=== PATIENT | female | born 1990 | race Caucasian/White ===

== ENCOUNTER 2025-05-27 02:46 | Emergency (ER) | payer OTHER, SELFPAY ==
[2025-05-27 02:48] VITALS: BP 145/98
[2025-05-27 02:49] VITALS: BP 145/98
[2025-05-27] MEDS: TORADOL 15 MG IV (03:05)
[2025-05-27] MEDS: NSS 1000 IV (03:06)
[2025-05-27 03:08] LABS: Hematocrit 37.7 % (37.0-47.0); Hemoglobin 12.6 g/dL (12.0-16.0); Mean Corp Hgb Conc. 33.4 g/dL (33.0-37.0); Mean Corpuscular Volume 83.4 fL (81.0-99.0); Nucleated Red Blood Cells % 0 %; Platelet Count 287 10^3/uL (130-400); Red Cell Dist. Width 13.2 % (11.5-14.5)
--- NOTE | 2025-05-27 03:11 | ED.GENMED ---
History of Present Illness
General
Chief Complaint: Flank Pain
Source: patient
Exam Limitations: none
Time Seen by Provider: 05/27/25 02:57
Nursing documentation reviewed up to this point in time: agreed with
History of Present Illness
History of Present Illness:
35-year-old female with history as noted presents for evaluation of flank pain. Patient reports onset of symptoms this evening�symptoms woke her from sleep. She reports a sharp pain in the right flank, nonradiating. She says similar to prior
kidney stones. Symptoms seem to have abated for now. She did have some nausea and vomiting earlier. Denies any fever or chills. No urinary symptoms. No vaginal bleeding or discharge. Denies any other acute complaints.
Review of Systems
Review of Systems
All Other Systems: ROS reviewed and negative except as documented in HPI and ROS
Constitutional: Denies fever or chills
Respiratory: Denies trouble breathing
Cardiac: Denies chest pain
ABD/GI: Reports nausea and vomiting; Denies abdominal pain or diarrhea
: Reports flank pain; Denies dysuria, frequency or bleeding
Musculoskeletal: Denies neck pain
Neurological: Denies dizzy or headache
Phy Exam
Physical Exam
Physical Exam:
General: Awake, alert, oriented x3; no acute distress
Head: Normocephalic, atraumatic
Eyes: Conjunctiva normal, sclera anicteric
Throat: Airway intact, handling secretions
Neck: Trachea midline, supple without meningismus
Lungs: Breathing comfortably with no evidence of respiratory distress
Heart: Regular rate
Abd: Soft, non distended, nontender
Back: No CVA tenderness
Neuro: Grossly intact
Skin: No rash in the area of concern
Extremities: Warm and well-perfused
Scores
Heart Failure Risk
Heart Failure Risk Score: Not Applicable
Heart Score for Chest Pain Patients
STEMI patient?: Not applicable
Withdrawal Assessment of Alcohol
Withdrawal Assessment Completed?: Not applicable
Course
Orders/Labs/Results
Orders:
Orders
05/27/25 02:56
Complete Blood Count/With Diff Urgent
Comprehensive Metabolic Panel Urgent
HCG, Serum Qualitative Screen Urgent
05/27/25 02:57
Ketorolac [Toradol] 15 mg IV NOW STA
Test Result ONCE
05/27/25 02:58
CT Abd/pel Without Iv Or Oral Urgent
Comment:
Reason For Exam: R flank pain
0.9% Sodium Chloride 1000 ml [Nss] 1,000 ml IV BOLUS
05/27/25 04:18
Urinalysis Reflex To Culture Urgent
Date Specimen was Collected: 05/27/25
Time Specimen was Collected: 04:11
Urine Microscopic Reflex Cult Urgent
Urine Culture Urgent
BESSIE Source: U
Specimen Description:
Date Specimen was Collected: 05/27/25
Time Specimen was Collected: 04:11
Abnormal Lab Results
05/27/25 05/27/25
02:56 04:18
Absolute Monos (auto) 1.2 H 10^3/uL
(0.1-0.6)
Neutrophils % 42.1 L %
(42.2-75.2)
Monocytes % 13.9 H %
(1.7-9.3)
BUN 18 H mg/dl
(7-17)
Ur Occult Blood Reflex 3+ A
(Negative)
Urine Nitrite (Reflex) Positive A
(Negative)
Leukocyte Esterase Rfl 1+ A
(Negative)
Urine RBC 3-6 A /HPF
(0-2)
Urine WBC (Reflex) 26-30 A /HPF
(0-5)
Urine Bacteria (Reflex) Many A
(Negative)
Urine Albumin (Reflex) 1+ A
(Neg - Trace)
05/27/25 02:56
05/27/25 02:56
Vital Signs
Initial and Last Documented VS:
Initial Vital Signs
BP Pulse Ox
145/98 99
05/27/25 02:48 05/27/25 02:48
Last Documented Vital Signs
Temp Pulse Resp BP Pulse Ox
36.7 C 81 18 145/98 97
05/27/25 02:49 05/27/25 02:49 05/27/25 02:49 05/27/25 02:49 05/27/25 03:14
MDM/Problems Addressed
Differential Diagnosis Includes:
Nephrolithiasis, UTI, ovarian cyst, cholelithiasis, cholecystitis
MDM/Problems Addressed:
35-year-old female presents with right flank pain similar to prior kidney stones�pain was very intense and woke her from sleep tonight but seems to have abated. Nausea and vomiting earlier seems to resolved. Vitals and exam are as above. Check
labs, urine, hCG. Check CT abdomen. Reassess after the above.
Labs reviewed no clinically significant abnormalities. hCG negative. UA contaminated�patient with no urinary symptoms, no fever, no leukocytosis�would not treat at this point. CT shows 2 to 3 mm stone in the distal right ureter with
hydronephrosis. Patient pain-free on reassessment. Stable for discharge for trial of passage. Patient comfortable with this plan. All questions answered.
*Radiology
Radiology exam reviewed: radiology read reviewed
*Pulse Oximetry
SaO2: 97
Oxygen Mode of Delivery: Room air
Patient hypoxic: no (97%)
*Critical Care Note
Total Time (30-74mins, 75-104mins- exclusive of procedures): Not Applicable
Data Reviewed
Source: patient and records
ED Attending Note
-
Portions of this chart may have been created with voice recognition software.� Occasional wrong word or��sound alike� substitutions may have occurred due to the inherent limitations of voice recognition software.
Discharge Plan
Departure
Patient Disposition: Home (Routine Discharge)
Date of Disposition: 05/27/25
Time of Disposition: 04:07
Patient with high blood pressure during this ER visit?: Yes
Discharge Problem:
Nephrolithiasis
Instructions: Kidney Stones (DC)
Prescriptions:
New
tamsulosin 0.4 mg capsule
0.4 mg PO DAILY Qty: 10 0RF
No Action
WesTab Plus 27 mg iron- 1 mg Tablet
1 tab PO DAILY 30 Days Qty: 30 0RF
cefdinir 300 mg capsule
300 mg PO Q12H 5 Days Qty: 10 0RF
Referrals:
UNKNOWN - PT DOES,NOT KNOW [Family Provider]
Activity Restrictions/Additional Instructions:
Thank you for visiting the Emergency Department at [facility].
1. Please schedule a follow up appointment as directed. Call first thing tomorrow morning to make an appointment.
2. If indicated, please take your medications as instructed and indicated on discharge paperwork.
3. If any of your symptoms do not improve, or persist, or become more severe within 6-12 hours, please return to the emergency department for further care.
4. Please return to the emergency department if you develop a headache, neck pain/stiffness, fever greater than 100.4F, chest pain, shortness of breath, persistent nausea, vomiting, slurred speech, difficulty walking, numbness/tingling, weakness,
signs of infection or any other symptoms that are worrisome to you.
Please call [phone] if you have any questions.
Interventions
Interventions:
*Risk Screen - Suicide Last Done: 05/27/25 02:49
*General Assessment Last Done: 05/27/25 02:49
*Neglect/Abuse Screening Last Done: 05/27/25 02:49
*ED COVID-19 Vaccine History Last Done: 05/27/25 04:33
*ED Influenza Vaccine History Last Done: 05/27/25 02:49
[facility] Fall Risk Assessment Tool Last Done: 05/27/25 03:37
*Nursing Disposition Last Done: 05/27/25 04:33
RP-Xfkrct-Krirtuhxdh Assessment Last Done: 05/27/25 03:03
ED-Female Genitourinary Assessment Last Done: 05/27/25 03:03
Discharge Date and Time
Discharge Date/Time: 05/27/25 04:33
Print Language: SENEGALESE
[2025-05-27 03:26] LABS: HCG, Serum Qualitative Screen Negative
[2025-05-27 03:28] LABS: ALT (SGPT) 25 U/L (0-35); AST (SGOT) 20 U/L (14-36); Albumin 4.4 g/dl (3.5-5.0); Alkaline Phosphatase 87 U/L (38-126); Blood Urea Nitrogen 18 mg/dl (7-17); Calcium 10.1 mg/dl (8.4-10.2); Carbon Dioxide 25 mmol/L (22-30); Chloride 103 mmol/L (98-107); Glucose 89 mg/dl (70-99); Potassium 3.7 mmol/L (3.5-5.1); Sodium 136 mmol/L (135-145); Total Protein 7.9 g/dl (6.3-8.2); eGFR > 60.00
[2025-05-27 04:30] LABS: Urine Character Slightly Cloudy (Clear)
[2025-05-27 05:14] LABS: Urine Squamous Cell >30 /LPF (Few)
[2025-05-27 05:17] LABS: Urine White Cell 26-30 /HPF (0-5)
== END 2025-05-27 04:33 | disposition home or self-care (01) ==
LOC: EMR 02:46
PROVIDERS: EMERGENCY PHYSICIAN Emergency Medicine
DX: N13.2 Hydronephrosis with renal and ureteral calculous obstruction (principal); Z87.442 Personal history of urinary calculi
CPT/HCPCS: 99284; 96374; 96361; 74176; 80053; 81003; 81015; 84703; 85025; 87086